=== PATIENT | female | born 1965 | race African-American/Black ===

== ENCOUNTER 2022-01-26 07:43 | Emergency (ER) | payer MEDICAID ==
[~2022-01-26] VITALS: Ht 165.1 cm; Wt 91.0 kg
[2022-01-26] MEDS ORDERED: HYDR25TA PO (08:42)
[2022-01-26] MEDS ORDERED: AMLO5TAB88 PO (08:42)
[2022-01-26] MEDS ORDERED: IBUPROFEN 400MG TABLET PO ONE (09:00)
[2022-01-26 09:21] VITALS: BP 160/94
[2022-01-26] MEDS ORDERED: IBUP-2028 MT (10:35)
== END 2022-01-26 10:52 | disposition home or self-care (01) ==
LOC: ER 07:43
DX: M25.571 Pain in right ankle and joints of right foot (principal); I10 Essential (primary) hypertension; Z98.890 Other specified postprocedural states
CPT/HCPCS: 73610; 99283